=== PATIENT | male | born 1980 | race Caucasian/White ===

== ENCOUNTER 2018-08-27 08:14 | Emergency (ER) | payer OTHER ==
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
[2018-08-27] MEDS ORDERED: LIDOCAINE IV SCH (09:00)
[2018-08-27] MEDS ORDERED: Triple Antibiotic 0.94 gm Pkt TP STA (09:33)
--- NOTE | 2018-08-27 09:35 | Diagnostic Imaging Report ---
Right fifth finger (3 views) HISTORY: Pain, trauma Generalized soft tissue swelling adjacent to the fifth distal phalanx. There is a 2 mm calcific density noted adjacent to the head of the fifth middle phalanx appreciated in the lateral view. No definite donor site is seen. This may be chronic. No other acute fractures are appreciated at this time. No dislocation. IMPRESSION: 1. Soft tissue swelling 2. Punctate calcification adjacent to the head of the fifth middle phalanx. No donor site is seen. This may be chronic. A small avulsion fracture cannot be ruled out. A follow-up radiograph in 5-7 days may be helpful for further assessment.
[2018-08-27] MEDS ORDERED: Bacitracin pkt 1 gm Pkt TP ONE (09:38)
== END 2018-08-27 10:25 | disposition home or self-care (01) ==
LOC: ER 08:14
DX: S61.216A Laceration without foreign body of right little finger without damage to nail, initial encounter (principal); I10 Essential (primary) hypertension; Z88.0 Allergy status to penicillin; W23.0XXA Caught, crushed, jammed, or pinched between moving objects, initial encounter; Y93.89 Activity, other specified; Y92.89 Other specified places as the place of occurrence of the external cause; Y99.0 Civilian activity done for income or pay
CPT/HCPCS: 12001; 73140-TC-F9; A4217; Z7502; Z7610